=== PATIENT | female | born 1960 | race Asian ===

== ENCOUNTER 2024-08-21 14:28 | Emergency (ER) | payer MEDICAID, OTHER ==
[~2024-08-21] VITALS: Ht 157.5 cm; Wt 54.9 kg
--- NOTE | 2024-08-21 15:04 | ED.PDOC ---
General HPI Comments PMHx: DM, HTN, HLD, sepsis, kidney stones, gallstones, UTI PSHx: Denies. Social hx: No alcohol, illicit drug, or tobacco use. Meds: Carvedilol, Glipizide, Jardiance, ASA Allergies: Codeine. Vitals T: 98.0F RR: 18 HR: 91 BP: 148/68 O2: 97% on RA HPI: Poor Historian. 64Y F presents to ED for chief complaint intermittent n/v x1wk. Additional symptoms include minimal suprapubic pain and vaginal itching. Suprapubic pain is not present on palpation. Pt denies all urinary symptoms. Pt states she had sepsis 1yr ago from UTI (E. Coli) and says she is experiencing the same symptoms now. Patient denies any other symptoms. Patient is here to make sure she does not have sepsis says she has some sepsis in the past. She said I just wanted reassurance. REVIEW OF SYSTEMS: CONSTITUTIONAL: Denies acute: fever, diaphoresis, chills, HEAD: Denies acute: headache, photophobia Eyes: Denies acute: Double vision, vision loss, eye pain, eye discharge. EARS: Denies acute: tinnitus, hearing loss, ear discharge, ear pain, THROAT: Denies acute: sore throat, swelling, difficulty swallowing , pain with swallowing, change in voice. NECK: Denies acute: neck pain, neck swelling, stiff neck. HEART: Denies acute : chest pain, palpitations, LUNGS: Denies acute: SOB, wheezing, cough, hemoptysis ABDOMEN: Denies acute: diarrhea, melena , hematemesis, hematochezia SKIN: Denies acute: rash, redness, lesions, itchiness. EXTREMITIES: Denies acute: calf pain, numbness, tingling, weakness, denies pain in extremity. Denies acute: Low back pain. Neuro: Denies acute: focal neurological deficit, motor or sensory focal neurological deficit, tremors, seizure like activity, confusion, dizziness, change in mental status, loss of bowel or bladder function, cauda equina like symptoms. : Denies acute: dysuria, hematuria, flank pain, increase in urinary frequency. PSYCH: Denies acute: hallucination, suicidal ideation, homicidal ideation. FEMALE: Denies acute: abnormal vaginal bleeding, foul odor, unusual discharge. PHYSICAL EXAM: General: no acute distress, awake and alert. Head: normocephalic, atraumatic. Neck: supple, trachea is midline, no swelling. Throat: Normal phonation. Eyes:, no erythema, no purulent discharge, no proptosis, no icterus. Heart: regular rate, regular rhythm, no significant murmur appreciated. Lungs: no apparent respiratory distress, Able to speak in full sentences. No wheezing, no rhonchi, no crackles. No stridors Clear to auscultation bilaterally. Abdomen: non tender to palpation, non distended, soft, no guarding, no rebound, + bowel sounds. Neuro: Awake, Alert, oriented to name, self, situation, follows commands GCS=15. Speech is normal. Skin: no petechia, no purpura, no cyanosis, non-pale, not jaundice. Lower extremities: --no - Pitting edema no deformity, no focal swelling, no calf TTP. Makes eye contact. moves all four extremities. Face: no apparent facial droop. Ambulating in the ED independently. Chief Complaint: Nausea/Vomiting Time Seen by MD: 14:51 Primary Care Provider: KIARA Reviewed notes: Nurses Notes, Medications, Allergies Information Source: Patient Mode of Arrival: Ambulatory Severity: Mild Inability to void: None Timing: Days Duration: Intermittent Onset: Spontaneous Symptoms: Other History of: UTI, Kidney stone Location: Suprapubic Modifying factors: None associated signs and symptoms: Nausea, Vomiting, Other Past Medical History PAST MEDICAL HISTORY: DM, Gallstones, High Lipids, HTN, Kidney Stones, UTI'S Surgical History: Denies all surgeries CHARGE OPERATOR History: Denies all CHARGE OPERATOR Hx Family History Family History: Family hx of DM Social History Smoker: Non-Smoker Alcohol: Denies ETOH Use Drugs: Denies Drug Use Lives In: Home Was a procedure done? Was a procedure done?: No Differential Diagnosis Kidney stone (Female): Musculoskeletal pain, Urolithiasis Kidney stone (Male): N/A Penile/Scrotal: N/A Urinary Problem (Male): N/A Urinary Problem (Female): Post-op complication, Pyelonephritis, Urinary retention, Urolithiasis, UTI X-Ray, Labs, Meds, VS Vital Signs Date Time Temp Pulse Resp B/P (MAP) Pulse Ox O2 Delivery O2 Flow Rate FiO2 08/21/24 16:15 87 16 148/78 (101) 100 08/21/24 14:46 98.0 91 18 148/68 (94) 97 Lab Test 08/21/24 18:00 08/21/24 16:17 08/21/24 15:56 08/21/24 14:50 Range/Units Urine Color Light-yellow Yellow Urine Clarity Clear Clear Urine pH 5.5 5.0-9.0 Urine Specific [place] 1.036 H 1.001-1.035 Urine Protein Trace H Negative Urine Ketones Negative Negative Urine Blood Negative Negative /uL Urine Nitrite Negative Negative Urine Bilirubin Negative Negative Urine Urobilinogen Normal Negative mg/dL Urine Leukocyte Esterase Negative Negative /uL Urine RBC 1 0 - 4 /hpf Urine WBC 1 0 - 5 /hpf Urine Squamous Epithelial Cells Few <5 /hpf Urine Bacteria None seen None Seen /hpf Urine Glucose 4+ H Normal mg/dL White Blood Count 7.5 4.4-10.8 10^3/uL Red Blood Count 5.42 H 4.0-5.20 10^6/uL Hemoglobin 15.5 12.2-16.2 g/dL Hematocrit 46.5 H 36.0-46.0 % Mean Corpuscular Volume 85.8 80.0-100.0 fL Mean Corpuscular Hemoglobin 28.5 28.0-32.0 pg Mean Corpuscular Hemoglobin Concent 33.3 32.0-36.0 g/dL Red Cell Distribution Width 13.0 11.8-14.3 % Platelet Count 298 140-450 10^3/uL Mean Platelet Volume 7.0 6.9-10.8 fL Neutrophils (%) (Auto) 61.2 37.0-80.0 % Lymphocytes (%) (Auto) 30.3 10.0-50.0 % Monocytes (%) (Auto) 4.3 0.0-12.0 % Eosinophils (%) (Auto) 3.6 0.0-7.0 % Basophils (%) (Auto) 0.6 0.0-2.0 % Neutrophils # (Auto) 4.6 1.6-8.6 10 ^3/uL Lymphocytes # (Auto) 2.3 0.4-5.4 10 ^3/uL Monocytes # (Auto) 0.3 0-1.3 10 ^3/uL Eosinophils # (Auto) 0.3 0-0.8 10 ^3/uL Basophils # (Auto) 0 0-0.2 10 ^3/uL Nucleated Red Blood Cells 0.0 % Sodium Level 142 136-145 mmol/L Potassium Level 4.0 3.5-5.1 mmol/L Chloride Level 107 98-107 mmol/L Carbon Dioxide Level 25 20-31 mmol/L Anion Gap 10 5-15 Blood Urea Nitrogen 17 9-23 mg/dL Creatinine 0.80 0.550-1.02 mg/dL Glomerular Filtration Rate Calc 81 >90 mL/min BUN/Creatinine Ratio 21.3 H 10.0-20.0 Serum Glucose 113 H 74-106 mg/dL Calcium Level 10.3 8.7-10.4 mg/dL Magnesium Level 2.3 1.6-2.6 mg/dL Total Bilirubin 0.5 0.2-1.0 mg/dL Aspartate Amino Transferase (AST) 10 L 13-40 U/L Alanine Aminotransferase (ALT) 13 7-40 U/L Alkaline Phosphatase 83 46-116 U/L Creatine Kinase 65 34-145 U/L Troponin I High Sensitivity < 3 L </=34 ng/L C-Reactive Protein High Sensitivity 0.04 <1.0 mg/dL Total Protein 7.6 5.7-8.2 g/dL Albumin 4.8 3.2-4.8 g/dL Lactic Acid Level 1.5 0.4-2.0 mmol/L POC Glucose 130 H 70-106 mg/dl [place] [address] Ph: [phone] DIAGNOSTIC IMAGING Diagnostic Imaging Report : [id number] Signed PATIENT: RODGER GILMOREFEBRUARY ACCT: [id number] UNIT: [id number] : 1960 LOC: ER ROOM / BED: / AGE / SEX: 64 / F ADM STATUS: REG ER SERVICE 1526 ORDERING PHYSICIAN: EDGAR ADAME DO PROCEDURE(s): CXRP - CHEST PORTABLE REASON: n/v/ suprapubic pain ORDER NUMBER(s): [id number], ACCESSION NUMBER(s): [id number] AP portable chest REASON FOR EXAM: n/v/ suprapubic pain INDICATION: n/v/ suprapubic pain FINDINGS: Heart size is normal There are no infiltrates or effusions. Degenerative changes in the thoracic spine. IMPRESSION: 1. No acute cardiopulmonary pathology. ATED BY: MERRILL BRADLEY MD DICTATED DATE/TIME: 08/21/241623 SIGNED BY: MERRILL BRADLEY MD SIGNED DATE/TIME: 08/21/241623 CC: [place] [id number] Ph: [phone] DIAGNOSTIC IMAGING Diagnostic Imaging Report : [id number] Signed PATIENT: RODGER GILMOREFEBRUARY ACCT: [id number] UNIT: [id number] : 1960 LOC: ER ROOM / BED: / AGE / SEX: 64 / F ADM STATUS: REG ER SERVICE 1526 ORDERING PHYSICIAN: EDGAR ADAME DO PROCEDURE(s): ABPL - CT AB PEL WO CON-NO ORAL OR IV REASON: n/v/ suprapubic pain ORDER NUMBER(s): [id number], ACCESSION NUMBER(s): [id number] Exam: CT CT AB PEL WO CON-NO ORAL OR IV History: n/v/ suprapubic pain Comparison Study: None available at time of dictation. Technique: Multidetector CT of the abdomen and pelvis without contrast. Axial, coronal and sagittal multiplanar reformats were performed by the technologist on a separate workstation. Radiation Dose Information: CT Dose: CTDI volume is 5.19 mGy. Dose-length product is 263.4 mGy*cm Findings: Lung bases are clear. Partially visualized heart is unremarkable. Cholelithiasis without evidence of acute cholecystitis. Liver, spleen, pancreas and adrenal glands are unremarkable. Punctate nonobstructing right renal lower pole calculus. Otherwise, kidneys, ureters and urinary bladder are unremarkable. Uterus and adnexa are unremarkable. Punctate calcification of the right adnexa. Small hiatal hernia. Stomach is unremarkable. Small bowel loops unremarkable. Appendix is unremarkable. Moderate amount of fecal material within the colon. No evidence of aortic aneurysm. Mild atherosclerotic calcification of the aorta and bilateral iliacs. No significant lymphadenopathy. Tiny fat containing umbilical hernia. The soft tissues are unremarkable. Sclerotic focus of the right superior pubic ramus and left proximal femur which may represent bone islands with blastic lesions not excluded. Diffuse demineralization. Mild anterior wedge deformity of T12 with superior T12 endplate Schmorl nodes. IMPRESSION: No evidence of acute abdominopelvic abnormalities. Moderate amount of fecal material within the colon. Small hiatal hernia. Cholelithiasis with no CT evidence of acute cholecystitis. Punctate nonobstructing right renal calculus. ATED BY: JOSSIE MOORE DO DICTATED DATE/TIME: 08/21/24 1635 SIGNED BY: JOSSIE MOORE DO SIGNED DATE/TIME: 08/21/24 1635 CC: Time of 1ST Reevaluation: 15:21 Reevaluation 1ST: Unchanged Time of 2ND Reevaluation: 20:08 Reevaluation 2ND: Improved Patient Education/Counseling: Diagnosis, Treatment Family Education/Counseling: No Family Present Comments Patient presented with the above HPI.---abdominal pain---workup was initiated. patient was found with the above mentioned diagnosis. Patient was given: Patient ED course and VS have been stabilized. Patient has been reassessed in the ED and remained in a stable condition. Patient eloped All the reports of any imaging studies that were ordered by myself were reviewed by myself. Departure 1 Departure Time of Disposition: 19:20 Impression: Primary Impression: Eloped from emergency department Additional Impressions: Nausea and vomiting Constipation Disposition: LEFT AWOL/ELOPED Condition: Stable Additional Instructions: Patient eloped. Below are instructions in case she returns to pick them up. Additional discharge instructions: You MUST follow-up with your primary care/family doctor in 1 to 2 days. If you are unable to see your primary care/family doctor, please return to our emergency room for re-assessment and re-evaluation in 1 to 2 days. Return to the emergency room here in our facility or to the nearest ER [facility] if y our symptoms change or worsen. CONSULTATIONS: you MUST Follow-up for consultation as soon as possible with: -cardiology and Infectious Disease in 1-2 days. Please call for appointment You MUST call the consultants office yourself to make an appointment. You may need to arrange that through your insurance and/or your primary/family doctor. If you are unable to see the product development consultant in 1 to 2 days, you must return to our emergency room (or any other ER of your choice) for re-assessment and re-evaluation. Adequate fluid hydration. Increase fiber intake. Below is a copy of your radiological report for follow up: [facility] [address] [facility] [address] Ph: [phone] DIAGNOSTIC IMAGING Diagnostic Imaging Report : [id number] Signed PATIENT: RODGER GILMOREFEBRUARY ACCT: [id number] UNIT: [id number] : 1960 LOC: ER ROOM / BED: / AGE / SEX: 64 / F ADM STATUS: REG ER SERVICE 1526 ORDERING PHYSICIAN: EDGAR ADAME DO PROCEDURE(s): ABPL - CT AB PEL WO CON-NO ORAL OR IV REASON: n/v/ suprapubic pain ORDER NUMBER(s): [id number], ACCESSION NUMBER(s): [id number] Exam: CT CT AB PEL WO CON-NO ORAL OR IV History: n/v/ suprapubic pain Comparison Study: None available at time of dictation. Technique: Multidetector CT of the abdomen and pelvis without contrast. Axial, coronal and sagittal multiplanar reformats were performed by the technologist on a separate workstation. Radiation Dose Information: CT Dose: CTDI volume is 5.19 mGy. Dose-length product is 263.4 mGy*cm Findings: Lung bases are clear. Partially visualized heart is unremarkable. Cholelithiasis without evidence of acute cholecystitis. Liver, spleen, pancreas and adrenal glands are unremarkable. Punctate nonobstructing right renal lower pole calculus. Otherwise, kidneys, ureters and urinary bladder are unremarkable. Uterus and adnexa are unremarkable. Punctate calcification of the right adnexa. Small hiatal hernia. Stomach is unremarkable. Small bowel loops unremarkable. Appendix is unremarkable. Moderate amount of fecal material within the colon. No evidence of aortic aneurysm. Mild atherosclerotic calcification of the aorta and bilateral iliacs. No significant lymphadenopathy. Tiny fat containing umbilical hernia. The soft tissues are unremarkable. Sclerotic focus of the right superior pubic ramus and left proximal femur which may represent bone islands with blastic lesions not excluded. Diffuse demineralization. Mild anterior wedge deformity of T12 with superior T12 endplate Schmorl nodes. IMPRESSION: No evidence of acute abdominopelvic abnormalities. Moderate amount of fecal material within the colon. Small hiatal hernia. Cholelithiasis with no CT evidence of acute cholecystitis. Punctate nonobstructing right renal calculus. ATED BY: JOSSIE MOORE DO DICTATED DATE/TIME: 08/21/24 163 SIGNED BY: JOSSIE MOORE DO SIGNED DATE/TIME: 08/21/24 163 CC: Discharged With: Self Critical Care Note Critical Care Time?: No Heart Score Heart Score: Heart Score Response (Comments) Value History N/A 0 EKG N/A 0 Age N/A 0 Risk Factors N/A 0 Troponin N/A 0 Total 0 I personally scribed for EDGAR ADAME DO ([email or web address]) on 08/21/24 at 15:04. Electronically submitted by Leeann Vargas ([email or web address]). I personally scribed for EDGAR ADAME DO ([email or web address]) on 08/21/24 at 15:11. Electronically submitted by Leeann Vargas ([email or web address]). I personally scribed for EDGAR ADAME DO ([email or web address]) on 08/21/24 at 16:58. Electronically submitted by Leeann Vargas ([email or web address]). I personally scribed for EDGAR ADAME DO ([email or web address]) on 08/21/24 at 18:37. Elect ronically submitted by Leeann Vargas ([email or web address]). EDGAR ADAME DO Aug 21, 2024 15:04
[2024-08-21 16:15] VITALS: BP 148/78; PULSE 87; RESP 16; O2SAT 100
--- NOTE | 2024-08-21 16:26 | DVH ---
AP portable chest REASON FOR EXAM: n/v/ suprapubic pain INDICATION: n/v/ suprapubic pain FINDINGS: Heart size is normal There are no infiltrates or effusions. Degenerative changes in the th oracic spine. IMPRESSION: 1. No acute cardiopulmonary pathology.
--- NOTE | 2024-08-21 16:37 | DVH ---
Exam: CT CT AB PEL WO CON-NO ORAL OR IV History: n/v/ suprapubic pain Comparison Study: None available at time of dictation. Technique: Multidetector CT of the abdomen and pelvis without contrast. Axial, coronal and sagittal m ultiplanar reformats were performed by the technologist on a separate workstation. Radiation Dose Information: CT Dose: CTDI volume is 5.19 mGy. Dose-length product is 263.4 mGy*cm Findings: Lung bases are clear. Partially visualized heart is unremarkable. Cholelithiasis without evidence of acute cholecystitis. Liver, spleen, pancreas and adrenal glands ar e unremarkable. Punctate nonobstructing right renal lower pole calculus. Otherwise, kidneys, ureters and urinary lin dder are unremarkable. Uterus and adnexa are unremarkable. Punctate calcification of the right adnexa . Small hiatal hernia. Stomach is unremarkable. Small bowel loops unremarkable. Appendix is unremarkab le. Moderate amount of fecal material within the colon. No evidence of aortic aneurysm. Mild atherosclerotic calcification of the aorta and bilateral iliacs . No significant lymphadenopathy. Tiny fat containing umbilical hernia. The soft tissues are unremarkable. Sclerotic focus of the righ t superior pubic ramus and left proximal femur which may represent bone islands with blastic lesions not excluded. Diffuse demineralization. Mild anterior wedge deformity of T12 with superior T12 endpla te Schmorl nodes. IMPRESSION: No evidence of acute abdominopelvic abnormalities. Moderate amount of fecal material within the colon. Small hiatal hernia. Cholelithiasis with no CT evidence of acute cholecystitis. Punctate nonobstructing right renal calculus.
[2024-08-21 16:40] LABS: Basophils # (auto) 0 10 ^3/uL (0-0.2); Basophils % (auto) 0.6 % (0.0-2.0); Eosinophils # (auto) 0.3 10 ^3/uL (0-0.8); Eosinophils % (auto) 3.6 % (0.0-7.0); Hematocrit 46.5 % (36.0-46.0); Hemoglobin 15.5 g/dL (12.2-16.2); Lymphocytes # (auto) 2.3 10 ^3/uL (0.4-5.4); Lymphocytes % (auto) 30.3 % (10.0-50.0); Mean Corpuscular Hemoglobin 28.5 pg (28.0-32.0); Mean Corpuscular Hgb Conc. 33.3 g/dL (32.0-36.0); Mean Corpuscular Volume 85.8 fL (80.0-100.0); Monocytes # (auto) 0.3 10 ^3/uL (0-1.3); Monocytes % (auto) 4.3 % (0.0-12.0); Neutrophils # (auto) 4.6 10 ^3/uL (1.6-8.6); Neutrophils % (auto) 61.2 % (37.0-80.0); Platelet Count (auto) 298 10^3/uL (140-450); Red Blood Cells 5.42 10^6/uL (4.0-5.20); White Blood Cell 7.5 10^3/uL (4.4-10.8)
[2024-08-21 16:59] LABS: Alanine Aminotransferase 13 U/L (7-40); Alkaline Phosphatase 83 U/L (46-116); Anion Gap 10 (5-15); BUN/Creatinine Ratio 21.3 (10.0-20.0); Blood Urea Nitrogen 17 mg/dL (9-23); CRP High Sensitivity 0.04 mg/dL (<1.0); Calcium 10.3 mg/dL (8.7-10.4); Carbon Dioxide 25 mmol/L (20-31); Chloride 107 mmol/L (98-107); Glucose 113 mg/dL (74-106); Magnesium 2.3 mg/dL (1.6-2.6); Sodium 142 mmol/L (136-145)
[2024-08-21 17:00] LABS: Albumin 4.8 g/dL (3.2-4.8); Aspartate Aminotransferase 10 U/L (13-40); Bilirubin, Total 0.5 mg/dL (0.2-1.0); Creatine Kinase IFCC 65 U/L (34-145); Total Protein 7.6 g/dL (5.7-8.2)
[2024-08-21 18:02] LABS: Urine Bacteria None Seen /hpf (None Seen)
[2024-08-21 18:29] LABS: Urine Blood Negative /uL (Negative); Urine Clarity Clear (Clear); Urine Color Light-Yellow (Yellow); Urine Protein, UAD TRACE (Negative); Urine Specific Gravity 1.036 (1.001-1.035); Urine Urobilinogen Normal (Negative); Urine WBC 1 /hpf (0 - 5); Urine pH 5.5 (5.0-9.0)
== END 2024-08-21 19:20 | disposition left against medical advice (07) ==
LOC: ER 14:28
DX: K59.00 Constipation, unspecified (principal); R11.2 Nausea with vomiting, unspecified; E11.9 Type 2 diabetes mellitus without complications; I10 Essential (primary) hypertension; E78.5 Hyperlipidemia, unspecified; Z79.899 Other long term (current) drug therapy; Z88.8 Allergy status to other drugs, medicaments and biological substances; Z53.29 Procedure and treatment not carried out because of patient's decision for other reasons
CPT/HCPCS: 36415; 71045; 74176; 80053; 81001; 82550; 82962; 83605; 83735; 84484; 85025; 86141

== ENCOUNTER 2025-09-23 10:58 | Inpatient (IN) | payer MEDICAID, MEDICARE ==
[~2025-09-23] VITALS: Ht 157.5 cm; Wt 63.2 kg
--- NOTE | 2025-09-23 11:24 | ED.PDOC ---
HPI Comments 65 y/o F, with PMHx of HTN, HLD, and DMII presents to the ED for CC of chest pain. Patient states, she has been experiencing substernal non-radiating chest pain onset, this morning (09/23/25). Patient reports, pain to worsen when coughing and describes it to be "heavy" in nature. Patient denies shortness of breath, hemoptysis, palpitations, or dizziness. No other symptoms or modifying factors are present at this time. Chief Complaint: Chest Pain Time Seen by MD: 11:00 Reviewed Notes: Nurses Notes, Medications, Allergies Allergies: Coded Allergies: NO KNOWN ALLERGIES (Unverified , 09/23/25) Information Source: Patient Mode of Arrival: Ambulatory Severity: Moderate Timing: Days Duration: Since onset Prehospital treatment: None Location: Substernal Radiation: No Radiation Quality: Heavy Onset: At Rest Cardiac Risk Factors: Hyperlipidemia, HTN, Diabetes PE Risk Factors: None History of: None Associated Signs and Symptoms: None Past Medical History PAST MEDICAL HISTORY: DM, Gallstones, High Lipids, HTN, Kidney Stones, UTI'S Surgical History: Denies all surgeries MANAGER EDUCATION History: Denies all MANAGER EDUCATION Hx Family History Family History: Unknown Social History Smoker: Non-Smoker Alcohol: Denies ETOH Use Drugs: Denies Drug Use Lives In: Home Constitutional: denies: chills, diaphoresis, fatigue, fever, malaise, sweats, weakness, others EENTM: denies: blurred vision, double vision, ear bleeding, ear discharge, ear drainage, ear pain, ear ringing, eye pain, eye redness, hearing loss, mouth pain, mouth swelling, nasal discharge, nose bleeding, nose congestion, nose pain, photophobia, tearing, throat pain, throat swelling, voice changes, others Respiratory: reports: cough; denies: hemoptysis, orthopnea, SOB at rest, shortness of breath, SOB with excertion, stridor, wheezing, others Cardiovascular: reports: chest pain; denies: dizzy spells, diaphoresis, Dyspnea on exertion, edema, irregular heart beat, left arm pain, lightheadedness, palpitations, PND, syncope, others Gastrointestinal: denies: abdomen distended, abdominal pain, blood streaked bowels, constipated, diarrhea, dysphagia, difficulty swallowing, hematemesis, melena, nausea, poor appetite, poor fluid intake, rectal bleeding, rectal pain, vomiting, others Genitourinary: denies: abnormal vagina bleeding, burning, dyspareunia, dysuria, flank pain, frequency, hematuria, incontinence, pain, , vagina discharge, urgency, others Neurological: denies: dizziness, fainting, headache, left sided numbness, left sided weakness, numbness, paresthesia, pre-existing deficit, right sided numbness, right sided weakness, seizure, speech problems, tingling, tremors, weakness, others Musculoskeletal: denies: back pain, gout, joint pain, joint swelling, muscle pain, muscle stiffness, neck pain, others Integumetry: denies: bruises, change in color, change in hair/nails, dryness, laceration, lesions, lumps, rash, wounds, others Allergic/Immunocompromised: denies: Difficulty Healing, Frequent Infections, Hives, Itching, others Hematologic/Lymphatic: denies: anemia, blood clots, easy bleeding, easy bruising, swollen glands, others Endocrine: denies: excessive hunger, excessive sweating, excessive thirst, excessive urination, flushing, intolerance to cold, intolerance to heat, unexplained weight gain, unexplained weight loss, others Psychiatric: denies: anxiety, bipolar disorder, depression, hopeless, panic disorder, schizophrenia, sleepless, suicidal, others All Other Systems: Reviewed and Negative Physical Exam General Appearance: Moderate Distress HEENT: Normal ENT Inspection, Pharynx Normal, TMs Normal Neck: Full Range of Motion, Non-Tender, Normal, Normal Inspection Respiratory: Chest Non-Tender, Lungs Clear, No Accessory Muscle Use, No Respiratory Distress, Normal Breath Sounds Cardiovascular: No Edema, No JVD, No Murmur, No Gallop, Normal Peripheral Pulses, Regular Rate/Rhythm Breast Exam: Deferred Gastrointestinal: No Organomegaly, Non Tender, No Pulsatile Mass, Normal Bowel Sounds, Soft Genitalia: Deferred Pelvic: Deferred Rectal: Deferred Extremities: No calf tenderness, Normal capillary refill, Normal inspection, Normal range of motion, Non-tender, No pedal edema Musculoskeletal : Apperance: Normal Neurologic: Alert, bill of lading clerk II-XII nml as Tested, No Motor Deficits, Normal Affect, Normal Mood, No Sensory Deficits Cerebellar Function: Normal Reflexes: Normal Skin: Dry, Normal Color, Warm Peripheral Pulses: 3+ Radial (R), 3+ Radial (L) Lymphatic: No Adenopathy Was a procedure done? Was a procedure done?: No CP Differential Dx Differential Diagnosis: A-fib, A-Flutter, Angina, Anxiety / Panic Attack, Atrial Dysrhythmia, Electrolyte Disorder Differential Diagnosis: Chest Wall Pain, Costochondritis X-Ray, Labs, Meds, VS Vital Signs Date Time Temp Pulse Resp B/P (MAP) Pulse Ox O2 Delivery O2 Flow Rate FiO2 09/23/25 12:35 99.0 97 17 106/67 (80) 96 99.0 09/23/25 12:35 17 17 96 Room Air 09/23/25 12:17 154/79 09/23/25 12:14 88 09/23/25 12:13 98.4 88 18 154/79 (104) 96 98.4 09/23/25 11:05 85 09/23/25 10:59 98.7 89 16 179/91 98 98.7 Lab Test 09/23/25 12:41 09/23/25 11:19 Range/Units Troponin I High Sensitivity Pending < 3 L </=34 ng/L White Blood Count 7.2 4.4-10.8 10^3/uL Red Blood Count 5.05 4.0-5.20 10^6/uL Hemoglobin 14.0 12.2-16.2 g/dL Hematocrit 42.0 36.0-46.0 % Mean Corpuscular Volume 83.2 80.0-100.0 fL Mean Corpuscular Hemoglobin 27.7 L 28.0-32.0 pg Mean Corpuscular Hemoglobin Concent 33.3 32.0-36.0 g/dL Red Cell Distribution Width 13.0 11.8-14.3 % Platelet Count 255 140-450 10^3/uL Mean Platelet Volume 7.5 6.9-10.8 fL Neutrophils (%) (Auto) 60.1 37.0-80.0 % Lymphocytes (%) (Auto) 31.2 10.0-50.0 % Monocytes (%) (Auto) 4.9 0.0-12.0 % Eosinophils (%) (Auto) 3.2 0.0-7.0 % Basophils (%) (Auto) 0.6 0.0-2.0 % Neutrophils # (Auto) 4.3 1.6-8.6 10 ^3/uL Lymphocytes # (Auto) 2.2 0.4-5.4 10 ^3/uL Monocytes # (Auto) 0.4 0-1.3 10 ^3/uL Eosinophils # (Auto) 0.2 0-0.8 10 ^3/uL Basophils # (Auto) 0 0-0.2 10 ^3/uL Nucleated Red Blood Cells 0.2 % Sodium Level 136 136-145 mmol/L Potassium Level 4.1 3.5-5.1 mmol/L Chloride Level 100 98-107 mmol/L Carbon Dioxide Level 26 20-31 mmol/L Anion Gap 10 5-15 Blood Urea Nitrogen 8 L 9-23 mg/dL Creatinine 1.03 H 0.550-1.02 mg/dL Glomerular Filtration Rate Calc 60 >90 mL/min BUN/Creatinine Ratio 7.8 L 10.0-20.0 Serum Glucose 311 H 74-106 mg/dL Calcium Level 10.0 8.7-10.4 mg/dL Total Bilirubin 0.6 0.2-1.0 mg/dL Aspartate Amino Transferase (AST) 16 13-40 U/L Alanine Aminotransferase (ALT) 17 7-40 U/L Alkaline Phosphatase 96 46-116 U/L Total Protein 7.9 5.7-8.2 g/dL Albumin 4.7 3.2-4.8 g/dL Current Medications Medications (Trade) Dose Ordered Sig/Rohan Route Start Time Stop Time Status Last Admin Aspirin 325 mg ONCE ONCE PO 09/23/25 11:30 09/23/25 11:31 DC 09/23/25 12:46 Nitroglycerin (Ntrostat Sublingual) 0.4 mg ONCE ONCE SL 09/23/25 11:30 09/23/25 11:31 DC 09/23/25 12:17 Patient alert. Came in because of chest pain. Ambulating. Vitals stable. Answering all questions. Saturation pristine on room air. Has risk factors for coronary artery disease. Request stress test. EKG reviewed does not show any acute changes. Explained to the patient. Continue monitoring. [facility] [address] [facility] [address] Ph: [phone] DIAGNOSTIC IMAGING Diagnostic Imaging Report : [id number] Signed PATIENT: RODGER GILMOREFEBRUARY ACCT: [id number] UNIT: [id number] : 1960 LOC: ER ROOM / BED: / AGE / SEX: 65 / F ADM STATUS: REG ER SERVICE 1106 ORDERING PHYSICIAN: MAYRA SOTO MD PROCEDURE(s): CXRP - CHEST PORTABLE REASON: CP ORDER NUMBER(s): [id number], ACCESSION NUMBER(s): [id number] EXAM: XY CHEST PORTABLE CLINICAL HISTORY: CP TECHNIQUE: Single AP view of the chest WID: COMPARISON: XY CHEST PORTABLE on DOS: 08/21/24, XY CHEST XRAY 1 VIEW on DOS: 09/02/23 FINDINGS: Lines and tubes: None Chest: The heart size and pulmonary vasculature is within normal limits. Calcified plaque projects over the aortic arch. No pleural effusion, pneumothorax, or consolidation. The osseous structures are grossly intact. IMPRESSION: 1. No acute cardiopulmonary abnormality. ATED BY: AVILA ALLEN MD DICTATED DATE/TIME: 09/23/251226 SIGNED BY: AVILA ALLEN MD SIGNED DATE/TIME: 09/23/251226 CC: Time of 1ST Reevaluation: 11:30 Reevaluation 1ST: Unchanged Patient Education/Counseling: Diagnosis, Treatment Family Education/Counseling: No Family Present SEPSIS Sepsis Screen Date sepsis recognized/suspect: Sep 23, 2025 Time Sepsis recognized/suspect: 1059 Recent Procedure: No On Antibiotic Therapy: No Respiratory Rate >20: No Heart Rate >90: No Temp<36 C (96.8 F) or >38.3 C: No SBP <90 or MAP <65 mmHG: No New Acute Mental Status Change: No Is the patient on CPAP, BIPAP,: No Physician Orders Chest Portable (09/23/25 11:06) Electrocardigram (09/23/25 11:03) Troponin-I Hs (09/23/25 12:03) Troponin-I Hs (09/23/25 14:03) Electrocardigram (09/23/25 12:03) Electrocardigram (09/23/25 14:03) Urinalysis (09/23/25 11:05) Vital Signs Date Time Temp Pulse Resp B/P (MAP) Pulse Ox O2 Delivery O2 Flow Rate FiO2 09/23/25 12:35 99.0 97 17 106/67 (80) 96 99.0 09/23/25 12:35 17 17 96 Room Air 09/23/25 12:17 154/79 09/23/25 12:14 88 09/23/25 12:13 98.4 88 18 154/79 (104) 96 98.4 09/23/25 11:05 85 09/23/25 10:59 98.7 89 16 179/91 98 98.7 Laboratory Tests Test 09/23/25 11:19 White Blood Count 7.2 10^3/uL (4.4-10.8) Medications Medications Dose Ordered Sig/Rohan Route Start Time Stop Time Status Last Admin Dose Admin Aspirin 325 mg ONCE ONCE PO 09/23/25 11:30 09/23/25 11:31 DC 09/23/25 12:46 Nitroglycerin 0.4 mg ONCE ONCE SL 09/23/25 11:30 09/23/25 11:31 DC 09/23/25 12:17 Departure 1 Departure Time of Disposition: 11:49 Impression: Primary Impression: Chest pain of unknown etiology Additional Impression: Hypertensive urgency Disposition: ADMITTED INPATIENT Admit to: Med Surg Condition: Guarded Critical Care Note Critical Care Time?: No Stability Stability form required: No Heart Score Heart Score: Heart Score Response (Comments) Value History Moderate Suspicious 1 EKG N/A 0 Age >65 2 Risk Factors 1 or 2 risk factors 1 Troponin N/A 0 Total 4 I personally scribed for MAYRA SOTO MD ([email or web address]) on 09/23/25 at 11:23. Electronically submitted by Avani Weiss ([employer]). I personally scribed for MAYRA SOTO MD ([email or web address]) on 09/23/25 at 11:29. Electronically submitted by Avani Weiss ([email or web address]). I personally scribed for MAYRA SOTO MD ([email or web address]) on 09/23/25 at 13:15. Electronically submitted by Avani Weiss ([employer]). MAYRA SOTO MD Sep 23, 2025 11:23
[2025-09-23 12:11] LABS: Hematocrit 42.0 % (36.0-46.0); Hemoglobin 14.0 g/dL (12.2-16.2); Mean Corpuscular Hemoglobin 27.7 pg (28.0-32.0); Mean Corpuscular Volume 83.2 fL (80.0-100.0); Nucleated Red Blood Cells % 0.2 %
[2025-09-23] MEDS: NITROGLYCERIN 0.4 MG SL TAB SL ONE (12:17)
[2025-09-23 12:22] LABS: Alanine Aminotransferase 17 U/L (7-40); Albumin 4.7 g/dL (3.2-4.8); Alkaline Phosphatase 96 U/L (46-116); Anion Gap 10 (5-15); BUN/Creatinine Ratio 7.8 (10.0-20.0); Bilirubin, Total 0.6 mg/dL (0.2-1.0); Calcium 10.0 mg/dL (8.7-10.4); Carbon Dioxide 26 mmol/L (20-31); Chloride 100 mmol/L (98-107); Potassium 4.1 mmol/L (3.5-5.1); Total Protein 7.9 g/dL (5.7-8.2)
--- NOTE | 2025-09-23 12:29 | DVH ---
EXAM: XY CHEST PORTABLE CLINICAL HISTORY: CP TECHNIQUE: Single AP view of the chest WID: COMPARISON: XY CHEST PORTABLE on DOS: 08/21/24, XY CHEST XRAY 1 VIEW on DOS: 09/02/23 FINDINGS: Lines and tubes: None Chest: The heart size and pulmonary vasculature is within normal limits. Calcified plaque projects over the aortic arch. No pleural effusion, pneumothorax, or consolidation. The osseous structures are grossly intact. IMPRESSION: 1. No acute cardiopulmonary abnormality.
[2025-09-23 12:31] LABS: Blood Urea Nitrogen 8 mg/dL (9-23); Glucose 311 mg/dL (74-106); Sodium 136 mmol/L (136-145)
--- NOTE | 2025-09-23 14:12 | ECG ---
[facility] Test Date: 2025-09-23 Test Time: 14:10:35 Pat Name: YOHANA GILMORE Department: Room: [address] [place] [address] Gender: F [employer] Mainframe Developer: JASVIR : 1960 Requested By: MAYRA SOTO Order Number: [id number] Reading MD: Vineet Scott Measurements Intervals [place] Rate: 92 P: 79 HI: 187 QRS: 76 QRSD: 68 T: 39 QT: 353 QTc: 437 Interpretive Statements Sinus rhythm Anteroseptal infarct, age indeterminate Electronically Signed On 09-27-2025 17:22:43 PST by Vineet Scott Please click the below link to view image of tracing.
[2025-09-23] MEDS ORDERED: ONDANSETRON HCL 4 MG/2 ML VIAL IV PRN (15:45)
[2025-09-23] MEDS ORDERED: ACETAMINOPHEN 325 MG TAB PO PRN (15:45)
[2025-09-23] MEDS ORDERED: DEXTROSE (50%) 50ML SYRG IV PRN (15:45)
[2025-09-23] MEDS ORDERED: NITROGLYCERIN 0.4 MG SL TAB SL PRN ×2 (15:45)
--- NOTE | 2025-09-23 15:50 | DVHHP2 ---
History of Present Illness Reason for Visit: chest pain History of Present Illness 89 yr old Female patient with past medical history significant for hypertension, hyperlipidemia, and diabetes, with no prior surgical history, presents with midsternal chest pain that has been ongoing for four days. Patient describes the pain as worse with coughing and reports an associated cough. She states she took nitroglycerin, which helped improve her symptoms. She denies fever and denies any tearing or ripping sensation in the chest or pelvis. She has no prior history of myocardial infarction. She reports outpatient cardiology follow-up with Dr. Christianson.In the ED, laboratory evaluation showed troponins negative x3, CBC unremarkable, CMP unremarkable, and creatinine 1.03. Chest X- ray was unremarkable. Given her cardiac risk factors and chest pain responsive to nitroglycerin, she is being admitted for ACS rule-out and further cardiac evaluation. Past Medical History See HPI above Past Surgical History See HPI above Family History Reviewed, non-contributory to the management of this case. Past Social History The patient lives at home, denies smoking, alcohol or illicit drugs abuse. Review of Systems Constitutional: No: Fever, Chills, Sweats, Weakness, Malaise, Other Eyes: No: Pain, Vision change, Conjunctivae inflammation, Eyelid inflammation, Other, Redness ENT: No: Ear pain, Ear discharge, Nose pain, Nose discharge, Nose congestion, Mouth pain, Mouth swelling, Throat pain, Throat swelling, Other Respiratory: No: Cough, Dry, Shortness of breath, SOB with excertion, Wheezing, Hemoptysis, Pleuritic Pain, Sputum, Wheezing, Other Cardiovascular: Chest Pain, Palpitations; No: Orthopnea, Paroxysmal Noc. Dyspnea, Edema, Lt Headedness, Other Gastrointestinal: No: Nausea, Vomiting, Abdominal Pain, Diarrhea, Constipation, Melena, Hematochezia, Other Genitourinary: No Dysuria, No Frequency, No Incontinence, No Hematuria, No Retention, No Other Musculoskeletal: No: other, neck pain, shoulder pain, arm pain, back pain, hand pain, leg pain, foot pain Skin: No: Rash, Lesions, Jaundice, Bruising, Other Neurological: No: Weakness, Numbness, Incoordination, Change in speech, Confusion, Seizures, Other Allergies: Coded Allergies: NO KNOWN ALLERGIES (Unverified , 09/23/25) Medications Current Medications Medications Dose Ordered Sig/Rohan Route Start Time Stop Time Status Last Admin Dose Admin Diagnostic Test (Pha) 1 strip ACHS 09/23/25 17:00 Insulin Human Regular ACHS SC 09/23/25 17:00 Dextrose 50 ml UD PRN IV 09/23/25 15:45 Aspirin 81 mg DAILY PO 09/24/25 10:00 Atorvastatin Calcium 40 mg HS PO 09/23/25 22:00 Acetaminophen 325 mg Q4HP PRN PO 09/23/25 15:45 Docusate Sodium 100 mg DAILY PO 09/24/25 10:00 Ondansetron HCl 4 mg Q4HP PRN IV 09/23/25 15:45 Enoxaparin Sodium 40 mg DAILY IV 09/24/25 10:00 Nitroglycerin 0.4 mg Q5MINP PRN SL 09/23/25 15:45 Exam Vital Signs Vital Signs Date Time Temp Pulse Resp B/P (MAP) Pulse Ox O2 Delivery O2 Flow Rate FiO2 09/23/25 12:35 99.0 97 17 106/67 (80) 96 99.0 09/23/25 12:35 Room Air General Appearance: Alert, Oriented X3, Cooperative, No acute distress HEENT: Atraumatic, PERRLA, EOMI, Mucous membr. moist/pink Respiratory: Clear to auscultation, Normal air movement Cardiovascular: Regular rate, Normal S1, Normal S2, No murmurs Abdominal: Normal bowel sounds, Soft, No tenderness, No hepatospenomegaly, No masses Extremities: No clubbing, No cyanosis, No edema, Normal pulses, No tenderness/swelling Skin: No rashes, No breakdown, No significant lesion Neuro: Normal gait, Normal speech, Strength at 5/5 X4 ext, Normal tone, Sensation intact Psych/Mental Status: Mental status NL, Mood NL Labs/Xrays Chest x-ray unremarkable I reviewed labs, imaging CT scan abdomen pelvis, EKG and all diagnostic studies on this patient from ED records and the medical chart Labs Test 09/23/25 14:06 09/23/25 11:19 Range/Units Troponin I High Sensitivity < 3 L </=34 ng/L White Blood Count 7.2 4.4-10.8 10^3/uL Red Blood Count 5.05 4.0-5.20 10^6/uL Hemoglobin 14.0 12.2-16.2 g/dL Hematocrit 42.0 36.0-46.0 % Mean Corpuscular Volume 83.2 80.0-100.0 fL Mean Corpuscular Hemoglobin 27.7 L 28.0-32.0 pg Mean Corpuscular Hemoglobin Concent 33.3 32.0-36.0 g/dL Red Cell Distribution Width 13.0 11.8-14.3 % Platelet Count 255 140-450 10^3/uL Mean Platelet Volume 7.5 6.9-10.8 fL Neutrophils (%) (Auto) 60.1 37.0-80.0 % Lymphocytes (%) (Auto) 31.2 10.0-50.0 % Monocytes (%) (Auto) 4.9 0.0-12.0 % Eosinophils (%) (Auto) 3.2 0.0-7.0 % Basophils (%) (Auto) 0.6 0.0-2.0 % Neutrophils # (Auto) 4.3 1.6-8.6 10 ^3/uL Lymphocytes # (Auto) 2.2 0.4-5.4 10 ^3/uL Monocytes # (Auto) 0.4 0-1.3 10 ^3/uL Eosinophils # (Auto) 0.2 0-0.8 10 ^3/uL Basophils # (Auto) 0 0-0.2 10 ^3/uL Nucleated Red Blood Cells 0.2 % Sodium Level 136 136-145 mmol/L Potassium Level 4.1 3.5-5.1 mmol/L Chloride Level 100 98-107 mmol/L Carbon Dioxide Level 26 20-31 mmol/L Anion Gap 10 5-15 Blood Urea Nitrogen 8 L 9-23 mg/dL Creatinine 1.03 H 0.550-1.02 mg/dL Glomerular Filtration Rate Calc 60 >90 mL/min BUN/Creatinine Ratio 7.8 L 10.0-20.0 Serum Glucose 311 H 74-106 mg/dL Calcium Level 10.0 8.7-10.4 mg/dL Total Bilirubin 0.6 0.2-1.0 mg/dL Aspartate Amino Transferase (AST) 16 13-40 U/L Alanine Aminotransferase (ALT) 17 7-40 U/L Alkaline Phosphatase 96 46-116 U/L Total Protein 7.9 5.7-8.2 g/dL Albumin 4.7 3.2-4.8 g/dL SEPSIS Sepsis Screen Date sepsis recognized/suspect: Sep 23, 2025 Time Sepsis recognized/suspect: 1213 Recent Procedure: No On Antibiotic Therapy: No Respiratory Rate >20: No Heart Rate >90: No Temp<36 C (96.8 F) or >38.3 C: No SBP <90 or MAP <65 mmHG: No New Acute Mental Status Change: No Is the patient on CPAP, BIPAP,: No Physician Orders Chest Portable (09/23/25 11:06) Electrocardigram (09/23/25 12:03) Electrocardigram (09/23/25 14:03) Urinalysis (09/23/25 11:05) Glucose Blood (Accu-Chek Comfort Curve T (09/23/25 17:00) Insulin R (Human) (Insulin R) (09/23/25 17:00) Dextrose 50% Syringe (09/23/25 15:45) Admit (09/23/25 15:35) Code Status (09/23/25 15:35) Vital Signs .PER UNIT PROTOCOL (09/23/25 15:35) Water Inspector (09/23/25 15:35) May Elevate Hob ____ Degrees (09/23/25 15:35) Cardiac Diet-2gna,Lofat,Lochol (09/23/25 Dinner) Aspirin Chewable Tablet (09/24/25 10:00) Atorvastatin (Lipitor) (09/23/25 22:00) Acetaminophen Tablet (Tylenol Tablet) (09/23/25 15:45) Docusate Sodium Capsule (Colace Capsule) (09/24/25 10:00) Complete Blood Count (09/24/25 04:00) Comprehensive Metabolic Panel (09/24/25 04:00) Echo 2d Mode Cardiac Dop (09/23/25 15:35) Ondansetron Hcl (Zofran) (09/23/25 15:45) Magnesium (09/23/25 15:35) Electrocardigram (09/23/25 15:35) Enoxaparin Sodium (Lovenox) (09/24/25 10:00) Cardiac Rehabilitation - Outpa (09/23/25 ) Nitroglycerin Sublingual (Ntrostat Subli (09/23/25 15:45) Stat Ekg For Chest Pain (09/23/25 15:35) Notify Md Of Changes From Base (09/23/25 15:35) Director State Pharmacy For 24 Hours (09/23/25 15:35) Emergency Dysrhythmia Protocol (09/23/25 15:35) Rhythm Strips Once Every Shift (09/23/25 15:35) Oxygen By Nasal Cannula (09/23/25 15:35) * Cardiology Consult (09/23/25 15:35) Communication Order (09/23/25 15:35) Vital Signs Date Time Temp Pulse Resp B/P (MAP) Pulse Ox O2 Delivery O2 Flow Rate FiO2 09/23/25 12:35 99.0 97 17 106/67 (80) 96 99.0 09/23/25 12:35 17 17 96 Room Air 09/23/25 12:17 154/79 09/23/25 12:14 88 09/23/25 12:13 98.4 88 18 154/79 (104) 96 98.4 09/23/25 11:05 85 09/23/25 10:59 98.7 89 16 179/91 98 98.7 Laboratory Tests Test 09/23/25 11:19 White Blood Count 7.2 10^3/uL (4.4-10.8) Medications Medications Dose Ordered Sig/Rohan Route Start Time Stop Time Status Last Admin Dose Admin Aspirin 325 mg ONCE ONCE PO 09/23/25 11:30 09/23/25 11:31 DC 09/23/25 12:46 325 MG Nitroglycerin 0.4 mg ONCE ONCE SL 09/23/25 11:30 09/23/25 11:31 DC 09/23/25 12:17 0.4 MG Assessment/Plan Assessment/Plan 65 female admitted for acute chest pain with multiple cardiovascular risk factors, requiring ACS rule-out and cardiology evaluation despite negative initial workup. acute Chest pain, rule out acute coronary syndrome (ACS) Admit to telemetry floor Troponins negative 3 EKG monitoring on telemetry Cardiology consult (Dr. Christianson) Continue aspirin and atorvastin Nitroglycerin PRN chest pain Hypertension Continue home antihypertensive medications Monitor blood pressure closely acute Cough, likely musculoskeletal chest pain component Chest X-ray unremarkable Symptomatic treatment Monitor for infectious symptoms chronic problems Hyperlipidemia Continue statin therapy Type 2 diabetes mellitus Accu-checks/Sliding scale insulin Hypertension FEN / PPx Fluids:hl Electrolytes: Monitor BMP Nutrition: Cardiac/diabetic diet DVT Prophylaxis: SCDs GI Prophylaxis: As indicated since no hx Disposition Admit to telemetry floor for continued cardiac monitoring and ACS rule-out. Cardiology consultation Plan discussed with: Patient My Orders Orders - ELLYN POLLARD DNP Procedure Category Date Status Time Glucose Blood PHA 09/23/25 In Process (Accu-Chek Comfort 17:00 Insulin R (Human) PHA 09/23/25 In Process (Insulin R) 17:00 Dextrose 50% Syringe PHA 09/23/25 In Process 15:45 Admit ADMIT 09/23/25 Transmitted 15:35 Code Status CODE 09/23/25 Transmitted 15:35 Vital Signs SONNY 09/23/25 In Process 15:35 Water Inspector SONNY 09/23/25 In Process 15:35 May Elevate Hob ____ SONNY 09/23/25 In Process Degrees 15:35 Cardiac DIET 09/23/25 Transmitted Diet-2gna,Lofat,Lochol Dinner Aspirin Chewable PHA 09/24/25 In Process Tablet 10:00 Atorvastatin (Lipitor) PHA 09/23/25 In Process 22:00 Acetaminophen Tablet PHA 09/23/25 In Process (Tylenol Tablet) 15:45 Docusate Sodium PHA 09/24/25 In Process Capsule (Colace 10:00 Complete Blood Count LAB 09/24/25 Verified 04:00 Comprehensive LAB 09/24/25 Verified Metabolic Panel 04:00 Echo 2d Mode Cardiac US 09/23/25 Logged DOP 15:35 Ondansetron Hcl PHA 09/23/25 In Process (Zofran) 15:45 Magnesium LAB 09/23/25 Logged 15:35 Electrocardigram EKG 09/23/25 Logged 15:35 Enoxaparin Sodium PHA 09/24/25 In Process (Lovenox) 10:00 Cardiac SONNY 09/23/25 In Process Rehabilitation - Outpa Nitroglycerin PHA 09/23/25 In Process Sublingual (Ntrostat 15:45 Stat Ekg For Chest SONNY 09/23/25 In Process Pain 15:35 Notify Of Changes SONNY 09/23/25 In Process From Base 15:35 Director State Pharmacy For SONNY 09/23/25 In Process 24 Hours 15:35 Emergency Dysrhythmia SONNY 09/23/25 In Process Protocol 15:35 Rhythm Strips Once [facility] 12/28/25 In Process Every Shift 15:35 Oxygen By Nasal RT 09/23/25 Transmitted Cannula 15:35 * Cardiology Consult CONS 09/23/25 Transmitted 15:35 Communication Order ORDERS 09/23/25 Transmitted 15:35 Date of Service: Sep 23, 2025 Billing Provider: ELLYN POLLARD DNP Common Visit Codes: [id number] INP/OBS CARE (HIGH) ELLYN POLLARD DNP Sep 23, 2025 15:50
[2025-09-23] MEDS: ACCU-CHEK COMFORT CURVE STRIP VI SCH (17:46)
[2025-09-23] MEDS: InsuLIN REG 1unit/0.01ml Soln (100units/ml) SC SCH (22:00)
[2025-09-23 22:15] LABS: Urine Protein, UAD 1+ (Negative)
[2025-09-24] VITALS (8 sets, daily range): BP systolic 105–163; BP diastolic 65–75; PULSE 80–95; RESP 14–20; TEMP 97.8–98.2; O2SAT 95–100
[2025-09-24] MEDS: ATORVASTATIN 20 MG TAB PO SCH (00:07)
[2025-09-24 05:41] LABS: Hematocrit 42.0 % (36.0-46.0); Hemoglobin 13.7 g/dL (12.2-16.2); Mean Corpuscular Hemoglobin 27.3 pg (28.0-32.0); Mean Corpuscular Volume 83.9 fL (80.0-100.0); Nucleated Red Blood Cells % 0.1 %
[2025-09-24 06:02] LABS: Alanine Aminotransferase 16 U/L (7-40); Alkaline Phosphatase 86 U/L (46-116); Anion Gap 11 (5-15); BUN/Creatinine Ratio 12.7 (10.0-20.0); Blood Urea Nitrogen 14 mg/dL (9-23); Calcium 9.7 mg/dL (8.7-10.4); Carbon Dioxide 26 mmol/L (20-31); Chloride 100 mmol/L (98-107); Potassium 3.7 mmol/L (3.5-5.1); Sodium 137 mmol/L (136-145)
[2025-09-24 06:03] LABS: Total Protein 7.5 g/dL (5.7-8.2)
[2025-09-24 06:04] LABS: Albumin 4.5 g/dL (3.2-4.8); Glucose 250 mg/dL (74-106)
[2025-09-24 06:05] LABS: Bilirubin, Total 0.6 mg/dL (0.2-1.0)
[2025-09-24] MEDS: DOCUSATE SOD 100 MG CAP PO SCH (10:00)
[2025-09-24] MEDS: ENOXAPARIN SOD 30 MG/0.3 ML SYRINGE IV SCH (10:00)
--- NOTE | 2025-09-24 10:10 | ECG ---
[facility] Test Date: 2025-09-23 Test Time: 11:05:53 Pat Name: YOHANA GILMORE Department: Room: [address] [place] [address] A Gender: F Skimmer: GEORGIE : 1960 Requested By: MAYRA SOTO Order Number: [id number] Reading MD: Vineet Scott Measurements Intervals [place] Rate: 85 P: 76 NV: 222 QRS: 70 QRSD: 69 T: 59 QT: 370 QTc: 440 Interpretive Statements Sinus rhythm Borderline prolonged NV interval Low voltage, precordial leads Anteroseptal infarct, age indeterminate Baseline wander in lead(s) V3,V4 Electronically Signed On 09-27-2025 17:20:12 PST by Vineet Scott Please click the below link to view image of tracing.
--- NOTE | 2025-09-24 10:10 | ECG ---
[facility] Test Date: 2025-09-23 Test Time: 12:06:59 Pat Name: YOHANA GILMORE Department: Room: [address] [place] [address] A Gender: F [employer] Gauger: JASVIR : 1960 Requested By: MAYRA SOTO Order Number: [id number] Reading MD: Vineet Scott Measurements Intervals [place] Rate: 83 P: 75 TN: 180 QRS: 68 QRSD: 70 T: 26 QT: 367 QTc: 432 Interpretive Statements Sinus rhythm Low voltage, precordial leads Borderline T abnormalities, anterior leads Electronically Signed On 09-27-2025 17:19:10 PST by Vineet Scott Please click the below link to view image of tracing.
[2025-09-24] MEDS: FLUTICASONE PROP NASAL SPR 0.05 % (50MCG) 16GM EACHNOSTRI ONE (11:09)
[2025-09-24 11:11] LABS: Cholesterol 157 mg/dL (< 200); HDL Cholesterol 35 mg/dL (40-59); Triglycerides 323 mg/dL (< 150)
--- NOTE | 2025-09-24 12:09 | DVHINCON2 ---
Date Seen: Sep 24, 2025 Referring Physician SHAHID Nails Reason for Consultation chest pain History of Present Illness Patient is a 65-year-old female with a medical history of hypertension, cjz-ltwxyig-wkyathinq type 2 diabetes mellitus, hyperlipidemia presented to the hospital with a chief complaint of chest pain. Patient reported chest pain to be substernal, comes on with the patient has episodes of cough, no exertional exacerbation or relief on taking any medications, nonradiating, denied any associated nausea, vomiting, perspiration, palpitations or shortness of breath. Initial 3 ECGs showed sinus rhythm without any acute ST or T-wave changes, troponin levels were normal. Past Medical History As per HPI Past Surgical History Denies Family History Noncontributory Social History Denies smoking, alcohol, drug use Allergies: Coded Allergies: Codeine (Verified Allergy, Unknown, 09/24/25) Current Medications Current Medications Medications (Trade) Dose Ordered Sig/Rohan Route PRN Reason Start Time Stop Time Status Last Admin Diagnostic Test (Pha) (Accu-Chek Comfort Curve T) 1 strip ACHS 09/23/25 17:00 09/24/25 06:33 Insulin Human Regular (InsuLIN R) ACHS SC 09/23/25 17:00 09/24/25 06:39 Dextrose 50 ml UD PRN IV Blood Sugar LESS THAN 60 09/23/25 15:45 Aspirin 81 mg DAILY PO 09/24/25 10:00 09/24/25 09:56 Atorvastatin Calcium (Lipitor) 40 mg HS PO 09/23/25 22:00 09/24/25 00:07 Acetaminophen (Tylenol Tablet) 325 mg Q4HP PRN PO FOR HEADACHE 09/23/25 15:45 Docusate Sodium (Colace Capsule) 100 mg DAILY PO 09/24/25 10:00 Nitroglycerin (Ntrostat Sublingual) 0.4 mg Q5MINP PRN SL FOR CHEST PAIN 09/23/25 15:45 09/23/25 15:44 DC Ondansetron HCl (Zofran) 4 mg Q4HP PRN IV NAUSEA / VOMITING 09/23/25 15:45 Enoxaparin Sodium (Lovenox) 40 mg DAILY IV 09/24/25 10:00 Nitroglycerin (Ntrostat Sublingual) 0.4 mg Q5MINP PRN SL FOR CHEST PAIN 09/23/25 15:45 Pantoprazole Sodium (Protonix) 40 mg DAILY IV 09/25/25 10:00 Insulin Glargine (Lantus) 20 units HS SC 09/24/25 22:00 Insulin Glargine (Lantus) 20 units QAM SC 09/25/25 07:00 Loratadine (Claritin Tablet) 10 mg DAILY PO 09/25/25 10:00 Fluticasone Propionate (Flonase [place]) 50 mcg Q12HR EACHNOSTRI 09/24/25 22:00 Review of Systems Patient is seen and examined at the bedside Denies any chest pain at present No shortness of breath, palpitations Vital Signs Vital Signs Date Time Temp Pulse Resp B/P (MAP) Pulse Ox O2 Delivery O2 Flow Rate FiO2 09/24/25 08:15 97.8 85 18 131/65 (87) 97 97.8 09/24/25 08:00 Room Air* 0 21 Physical Exam Skin - Patients skin is warm and dry. HEENT - normocephalic, atraumatic, moist mucous membranes, no scleral icterus, no conjunctival pallor. Neck - full ROM, no LAD, no JVD Pulmonary - B/L clear breath sounds without any wheezing, rales or stridor cardiovascular - regular S1,S2 heard, no added sounds or murmurs appreciated. peripheral pulses normal radial 2+, pedal 2+. GI - soft, nontender abdomen. no hepatospleenomegaly. Bowel sounds normoactive Neurological - Patient is A/O X 4 . Bilateral upper extremity strength 5/5, bilateral lower extremity strength 5/5, no facial droop, normal speech, no tremor, no sensory deficiets. Labs/Diagnostic Data Labs Test 09/24/25 06:33 09/24/25 04:57 09/23/25 21:00 09/23/25 14:06 Range/Units POC Glucose 231 H 70-106 mg/dl White Blood Count 7.6 4.4-10.8 10^3/uL Red Blood Count 5.01 4.0-5.20 10^6/uL Hemoglobin 13.7 12.2-16.2 g/dL Hematocrit 42.0 36.0-46.0 % Mean Corpuscular Volume 83.9 80.0-100.0 fL Mean Corpuscular Hemoglobin 27.3 L 28.0-32.0 pg Mean Corpuscular Hemoglobin Concent 32.6 32.0-36.0 g/dL Red Cell Distribution Width 12.9 11.8-14.3 % Platelet Count 256 140-450 10^3/uL Mean Platelet Volume 7.1 6.9-10.8 fL Neutrophils (%) (Auto) 50.8 37.0-80.0 % Lymphocytes (%) (Auto) 38.6 10.0-50.0 % Monocytes (%) (Auto) 6.4 0.0-12.0 % Eosinophils (%) (Auto) 3.7 0.0-7.0 % Basophils (%) (Auto) 0.5 0.0-2.0 % Neutrophils # (Auto) 3.8 1.6-8.6 10 ^3/uL Lymphocytes # (Auto) 2.9 0.4-5.4 10 ^3/uL Monocytes # (Auto) 0.5 0-1.3 10 ^3/uL Eosinophils # (Auto) 0.3 0-0.8 10 ^3/uL Basophils # (Auto) 0 0-0.2 10 ^3/uL Nucleated Red Blood Cells 0.1 % Sodium Level 137 136-145 mmol/L Potassium Level 3.7 3.5-5.1 mmol/L Chloride Level 100 98-107 mmol/L Carbon Dioxide Level 26 20-31 mmol/L Anion Gap 11 5-15 Blood Urea Nitrogen 14 9-23 mg/dL Creatinine 1.10 H 0.550-1.02 mg/dL Glomerular Filtration Rate Calc 55 >90 mL/min BUN/Creatinine Ratio 12.7 10.0-20.0 Serum Glucose 250 H 74-106 mg/dL Hemoglobin A1c 11.1 H <5.7 % A1C Calcium Level 9.7 8.7-10.4 mg/dL Total Bilirubin 0.6 0.2-1.0 mg/dL Aspartate Amino Transferase (AST) 13 13-40 U/L Alanine Aminotransferase (ALT) 16 7-40 U/L Alkaline Phosphatase 86 46-116 U/L Total Protein 7.5 5.7-8.2 g/dL Albumin 4.5 3.2-4.8 g/dL Triglycerides Level 323 H < 150 mg/dL Cholesterol Level 157 < 200 mg/dL LDL Cholesterol 73 < 100 mg/dL HDL Cholesterol 35 L 40-59 mg/dL Urine Color Light-yellow Yellow Urine Clarity Clear Clear Urine pH 6.0 5.0-9.0 Urine Specific [place] 1.028 1.001-1.035 Urine Protein 1+ H Negative Urine Ketones Trace Negative Urine Blood Negative Negative /uL Urine Nitrite Negative Negative Urine Bilirubin Negative Negative Urine Urobilinogen Normal Negative mg/dL Urine Leukocyte Esterase Negative Negative /uL Urine RBC 1 0 - 4 /hpf Urine Microscopic WBC 3 0-5 /HPF Urine Squamous Epithelial Cells Few <5 /hpf Urine Bacteria None seen None Seen /hpf Urine Mucus Few None Seen Urine Glucose 4+ H Normal mg/dL Magnesium Level 2.1 1.6-2.6 mg/dL Troponin I High Sensitivity < 3 L </=34 ng/L Assessment Acute chest pain, less likely ACS given the history Chest pain likely pleuritic/costochondritis Uncontrolled hypertension Dyslipidemia with hypertriglyceridemia Uncontrolled type 2 diabetes mellitus with a hyperglycemia Plan/Recommendation - reviewed EKGs sinus rhythm with no acute ST or T-wave changes, serial troponin levels WNL - continue strict blood pressure and blood glucose control - continue statins given dyslipidemia - consider outpatient follow up with the Cardiology for further risk stratification with a possible stress test. No further inpatient cardiology workup required. Thank you for consulting Goals of care discussed with the patient. Plan discussed with Dr. Us Plan discussed with: Patient NYHA Physical activity limitations: NA Date of Service: Sep 24, 2025 Billing Provider: TATA US MD Cardiology Common Codes: [id number] INP/OBS CARE (High) BOB ANAYA RESIDENT Sep 24, 2025 12:09
[2025-09-24] MEDS: PANTOPRAZOLE 40 MG/10 ML VIAL INJ IV ONE (12:19)
[2025-09-24] MEDS: LORATADINE 10 MG TAB PO ONE (12:19)
[2025-09-24 13:08] LABS: COVID19 ANTIGEN SOFIA FIA NEGATIVE (NEGATIVE)
[2025-09-24 13:15] LABS: Amphetamine Screen, Urine Neg (NEGATIVE); Barbiturate Scree,Urine Neg (NEGATIVE); Benzodiazephine Screen, Urine Neg (NEGATIVE); Cannabinoid Screen, Urine Neg (NEGATIVE); Cocaine Screen, Urine Neg (NEGATIVE); Opiate Scree,Urine Neg (NEGATIVE); Phencyclidine Screen, Urine Neg (NEGATIVE)
[2025-09-24] MEDS ORDERED: MAALOX PLUS or MAALOX 30 ML GT PRN (14:30)
--- NOTE | 2025-09-24 17:51 | DVHPNRES ---
Progress Note Date Seen: Sep 24, 2025 Resident Creating Document: OSCAR STERLING RESIDENT Medical Necessity Reason Pt with a Central, PICC or Fol: No Subjective Review of Systems Patient was seen and examined by me today. Labs and charts reviewed. Patient reports that her chest pain is no longer there, rating it as 1/10 when she coughs. She does complain of GERD symptoms. Objective vital signs Vital Sign Date Time Temp Pulse Resp B/P (MAP) Pulse Ox O2 Delivery O2 Flow Rate FiO2 09/24/25 13:00 98.0 86 18 130/65 (86) 95 98.0 09/24/25 08:00 Room Air* 0 21 Total Intake and Output 09/23/25 09/23/25 09/24/25 15:00 23:00 07:00 Intake Total 240 ml Balance 240 ml medications Current Medications Medications Dose Ordered Sig/Rohan Route Start Time Stop Time Status Last Admin Dose Admin Diagnostic Test (Pha) 1 strip ACHS 09/23/25 17:00 09/24/25 12:19 1 STRIP Insulin Human Regular ACHS SC 09/23/25 17:00 09/24/25 12:25 8 UNITS Dextrose 50 ml UD PRN IV 09/23/25 15:45 Aspirin 81 mg DAILY PO 09/24/25 10:00 09/24/25 09:56 81 MG Atorvastatin Calcium 40 mg HS PO 09/23/25 22:00 09/24/25 00:07 40 MG Acetaminophen 325 mg Q4HP PRN PO 09/23/25 15:45 Docusate Sodium 100 mg DAILY PO 09/24/25 10:00 Ondansetron HCl 4 mg Q4HP PRN IV 09/23/25 15:45 Enoxaparin Sodium 40 mg DAILY IV 09/24/25 10:00 Nitroglycerin 0.4 mg Q5MINP PRN SL 09/23/25 15:45 Pantoprazole Sodium 40 mg DAILY IV 09/25/25 10:00 Insulin Glargine 20 units HS SC 09/24/25 22:00 Insulin Glargine 20 units QAM SC 09/25/25 07:00 Loratadine 10 mg DAILY PO 09/25/25 10:00 Fluticasone Propionate 50 mcg Q12HR EACHNOSTRI 09/24/25 22:00 Al Hydrox/Mg Hydrox/Simethicone 15 ml Q8HP PRN GT 09/24/25 14:30 Examination General Appearance: Alert, Oriented X3, Cooperative, Not in acute distress HEENT: Atraumatic, Mucous membranes moist/pink Respiratory: Clear to auscultation, Normal air movement, No added sounds Cardiovascular: Regular rate, Normal S1, Normal S2, No murmurs Abdominal: Active bowel sounds, Soft, no distention, no tenderness Extremities: No edema, Normal pulses, No tenderness/swelling Skin: No Significant rash, except past surgical scars Neuro: Normal speech, sensorimotor deficits none Psych/Mental Status: Mental status NL, Mood NL Nurse was there as pattern fitter during examination laboratory and microbiology Laboratory Tests 09/24/25 04:57 Test 09/24/25 04:57 Range/Units Serum Glucose 250 H 74-106 mg/dL Labs and/or images reviewed: Labs reviewed by me, Image(s) reviewed by me Problem List/Assessment/Plan Problem List/Assessment/Plan 65-year-old female with history of type 2 diabetes mellitus ([id number]), hypertension, hyperlipidemia, and allergic rhinitis presents with 1-month history of intermittent cough producing white to occasionally yellow sputum, and 4-day history of substernal, stabbing chest pain (01/04) occurring only with cough, non-radiating, without associated symptoms. Assessment and plan #Acute chest pain, ruled out ACS, likely due to GERD #Cough due to GERD and allergic rhinitis -telemetry -tropes negative -aspirin 81 mg p.o. daily -chest x-ray shows no cardiopulmonary disease -IV ondansetron 4 mg q.4 PRN -IV Protonix -PO Mylanta 15 mL Q 8 PRN -echo -Cardiac consultation suggested outpatient stress test -TSH 5.48 increased, T4 normal 1.26 -Flonase spray 50 mcg b.i.d. in bilateral nostrils -Loratadine 10 mg p.o. daily HS #AYO on CKD likely VMN - monitor -Avoid nephrotoxic agents #Hyperlipidemia, noncompliance to medication -Atorvastatin 40 mg HS daily -Lipid panel shows triglyceride high 323, HDL low 35 #Uncontrolled type 2 diabetes mellitus, A1c 11.7 -Mild sliding scale insulin -Insulin Lantus 20 units HS daily -Diabetic education provided GI prophylaxis: IV Protonix DVT prophylaxis: subcutaneous Lovenox Diet: cardiac and diabetic diet Goals of care discussed with the patient for more than 27 minutes: Full code status Case discussed with Dr. Ford, and team Plan discussed with: Patient, Other (rn) Visit Coding STANDARD RES Billing Provider: CHRISTINA FORD MD Date of Service if different f: Sep 24, 2025 Common Visit Codes: [id number] INP/OBS CARE(HIGH) OSCAR STERLING RESIDENT Sep 24, 2025 17:51
--- NOTE | 2025-09-24 20:45 | DVHSR ---
APPROVED REPORT EXAM: Two-dimensional and M-mode echocardiogram with Doppler and color Doppler. Blood Pressure: 153/60 mmHg INDICATION Chest Pain RISK FACTORS Height: 5'2", Weight: 139 DIMENSIONS LVDd 3.3 (3.8-5.7cm) LA (2D) 3.3 (1.9-4.0cm) Aortic Root 3.1 (2.0-3.7cm) LVDs 2.2 (2.5-4.0cm) LA (MM) (1.9-4.0cm) Aortic Cusp Exc 1.8 (1.5-2.0cm) EF (%) 60.0 (55-70%) Rt. Atrium 3.4 (1.9-4.0cm) Asc. Aorta cm IVSd 1.2 (0.7-1.1cm) RV (D) (1.8-2.4cm) PWd 1.0 (0.7-1.1cm) Mitral Valve Mitral Mitral Stenosis E wave 0.70m/s MV Mean GR. mmHg A wave 1.30m/s MV Peak GR. mmHg E/A ratio 0.5 2D MVA cm2 DECEL Time 157ms PRESS 1/2 Time ms Aortic Valve Aortic Valve Aortic Stenosis V1 1.03m/s AO Mean GR. 3mmHg V2 1.00m/s AO Peak GR. 4mmHg LVOT Diameter 1.7 (1.8-2.4cm) Doppler CELIA 2.34cm2 Other Information Quality : Technically Limited Rhythm : Technically limited study due to body habitus. Conclusion LV EF IS 65% AND IS NORMAL NORMAL VALVES SLIGHTLY DILATED RV AND RA NO EFFUSION
--- NOTE | 2025-09-24 20:58 | DVHINCON2 ---
Date Seen: Sep 24, 2025 Referring Physician SHAHID Nails Reason for Consultation chest pain History of Present Illness This is a 65-year-old female with a PMH of hypertension, mjg-wwalnea-ofssbkxbk type 2 diabetes mellitus, hyperlipidemia who presented to the ED with a chief complaint of chest pain. Patient reported chest pain to be substernal, comes on with the patient has episodes of cough, no exertional exacerbation or relief on taking any medications, nonradiating, denied any associated nausea, vomiting, perspiration, palpitations or shortness of breath. Initial 3 ECGs showed sinus rhythm without any acute ST or T-wave changes, troponin levels were normal. Past Medical History As per HPI Past Surgical History Denies Allergies: Coded Allergies: Codeine (Verified Allergy, Unknown, 09/24/25) Current Medications Current Medications Medications (Trade) Dose Ordered Sig/Rohan Route PRN Reason Start Time Stop Time Status Last Admin Aspirin 81 mg DAILY PO 09/24/25 10:00 09/24/25 09:56 Atorvastatin Calcium (Lipitor) 40 mg HS PO 09/23/25 22:00 09/24/25 00:07 Docusate Sodium (Colace Capsule) 100 mg DAILY PO 09/24/25 10:00 Enoxaparin Sodium (Lovenox) 40 mg DAILY IV 09/24/25 10:00 Pantoprazole Sodium (Protonix) 40 mg DAILY IV 09/25/25 10:00 Insulin Glargine (Lantus) 20 units HS SC 09/24/25 22:00 Insulin Glargine (Lantus) 20 units QAM SC 09/25/25 07:00 Loratadine (Claritin Tablet) 10 mg DAILY PO 09/25/25 10:00 Fluticasone Propionate (Flonase [place]) 50 mcg Q12HR EACHNOSTRI 09/24/25 22:00 Al Hydrox/Mg Hydrox/Simethicone (Maalox Plus) 15 ml Q8HP PRN GT FOR STOMACH DISTRESS 09/24/25 14:30 Review of Systems Patient is seen and examined at the bedside Denies any chest pain at present No shortness of breath, palpitations Vital Signs Vital Signs Date Time Temp Pulse Resp B/P (MAP) Pulse Ox O2 Delivery O2 Flow Rate FiO2 09/24/25 18:24 98.0 88 18 123/75 (91) 96 98.0 09/24/25 08:00 Room Air* 0 21 Physical Exam GENERAL: Alert and oriented x 3. No acute distress. EYES: PERRL, EOMI. Anicteric. HENT: Moist mucous membranes. LUNGS: Clear to auscultation bilaterally. CARDIOVASCULAR: Regular rate and rhythm. ABDOMEN: Soft, non-tender and non-distended. EXTREMITIES: No edema. NEUROLOGIC: No focal neurological deficits. SKIN: Warm, dry. Labs/Diagnostic Data Labs Test 09/24/25 18:20 09/24/25 11:45 09/24/25 04:57 09/23/25 21:00 Range/Units POC Glucose 274 H 70-106 mg/dl Urine Opiates Screen Neg NEGATIVE Urine Fentanyl Screen Neg NEGATIVE Urine Barbiturates Screen Neg NEGATIVE Urine Phencyclidine Screen Neg NEGATIVE Urine Amphetamines Screen Neg NEGATIVE Urine Benzodiazepines Screen Neg NEGATIVE Urine Cocaine Screen Neg NEGATIVE Urine Cannabinoids Screen Neg NEGATIVE Influenza Type A Antigen Negative Negative Influenza Type B Antigen Negative Negative SARS-CoV-2 Antigen (Rapid) Negative NEGATIVE White Blood Count 7.6 4.4-10.8 10^3/uL Red Blood Count 5.01 4.0-5.20 10^6/uL Hemoglobin 13.7 12.2-16.2 g/dL Hematocrit 42.0 36.0-46.0 % Mean Corpuscular Volume 83.9 80.0-100.0 fL Mean Corpuscular Hemoglobin 27.3 L 28.0-32.0 pg Mean Corpuscular Hemoglobin Concent 32.6 32.0-36.0 g/dL Red Cell Distribution Width 12.9 11.8-14.3 % Platelet Count 256 140-450 10^3/uL Mean Platelet Volume 7.1 6.9-10.8 fL Neutrophils (%) (Auto) 50.8 37.0-80.0 % Lymphocytes (%) (Auto) 38.6 10.0-50.0 % Monocytes (%) (Auto) 6.4 0.0-12.0 % Eosinophils (%) (Auto) 3.7 0.0-7.0 % Basophils (%) (Auto) 0.5 0.0-2.0 % Neutrophils # (Auto) 3.8 1.6-8.6 10 ^3/uL Lymphocytes # (Auto) 2.9 0.4-5.4 10 ^3/uL Monocytes # (Auto) 0.5 0-1.3 10 ^3/uL Eosinophils # (Auto) 0.3 0-0.8 10 ^3/uL Basophils # (Auto) 0 0-0.2 10 ^3/uL Nucleated Red Blood Cells 0.1 % Sodium Level 137 136-145 mmol/L Potassium Level 3.7 3.5-5.1 mmol/L Chloride Level 100 98-107 mmol/L Carbon Dioxide Level 26 20-31 mmol/L Anion Gap 11 5-15 Blood Urea Nitrogen 14 9-23 mg/dL Creatinine 1.10 H 0.550-1.02 mg/dL Glomerular Filtration Rate Calc 55 >90 mL/min BUN/Creatinine Ratio 12.7 10.0-20.0 Serum Glucose 250 H 74-106 mg/dL Hemoglobin A1c 11.1 H <5.7 % A1C Calcium Level 9.7 8.7-10.4 mg/dL Total Bilirubin 0.6 0.2-1.0 mg/dL Aspartate Amino Transferase (AST) 13 13-40 U/L Alanine Aminotransferase (ALT) 16 7-40 U/L Alkaline Phosphatase 86 46-116 U/L Total Protein 7.5 5.7-8.2 g/dL Albumin 4.5 3.2-4.8 g/dL Triglycerides Level 323 H < 150 mg/dL Cholesterol Level 157 < 200 mg/dL LDL Cholesterol 73 < 100 mg/dL HDL Cholesterol 35 L 40-59 mg/dL Thyroid Stimulating Hormone (TSH) 5.48 H 0.55-4.78 uIU/mL Free Thyroxine (T4) Calculated 1.26 0.89-1.76 ng/dL Urine Color Light-yellow Yellow Urine Clarity Clear Clear Urine pH 6.0 5.0-9.0 Urine Specific [place] 1.028 1.001-1.035 Urine Protein 1+ H Negative Urine Ketones Trace Negative Urine Blood Negative Negative /uL Urine Nitrite Negative Negative Urine Bilirubin Negative Negative Urine Urobilinogen Normal Negative mg/dL Urine Leukocyte Esterase Negative Negative /uL Urine RBC 1 0 - 4 /hpf Urine Microscopic WBC 3 0-5 /HPF Urine Squamous Epithelial Cells Few <5 /hpf Urine Bacteria None seen None Seen /hpf Urine Mucus Few None Seen Urine Glucose 4+ H Normal mg/dL Test 09/23/25 14:06 Range/Units Magnesium Level 2.1 1.6-2.6 mg/dL Troponin I High Sensitivity < 3 L </=34 ng/L Assessment Acute chest pain, less likely ACS given the history. Chest pain likely pleuritic/costochondritis. Uncontrolled hypertension. Dyslipidemia with hypertriglyceridemia. Uncontrolled type 2 diabetes mellitus with a hyperglycemia. Plan/Recommendation agree with your ongoing assessment and care of plan. Patient has been seen by Pam Morales, resident on my behalf. We have discussed the plan with the patient. Reviewed EKGs sinus rhythm with no acute ST or T-wave changes, serial troponin levels WNL. Continue strict blood pressure and blood glucose control. Continue statins given dyslipidemia. Consider outpatient follow up with the Cardiology for further risk stratification with a possible stress test. Goals of care discussed with the patient. Additional plan as per the hospital course. Plan discussed with: Patient NYHA Physical activity limitations: NA Date of Service: Sep 24, 2025 Billing Provider: TATA US MD Cardiology Common Codes: [id number] INP/OBS CARE (High) Cardiology Consultation Codes: [id number] CONSULT <45MIN TATA US MD Sep 24, 2025 20:58
[2025-09-24] MEDS: INSULIN LANTUS (GLARGINE) 1 /0.01ml (100units/ml) SC SCH (22:00)
[2025-09-24] MEDS: FLUTICASONE PROP NASAL SPR 0.05 % (50MCG) 16GM EACHNOSTRI SCH (23:43)
[2025-09-25] MEDS: INSULIN LANTUS (GLARGINE) 1 /0.01ml (100units/ml) SC SCH (06:58)
[2025-09-25 07:25] LABS: Anion Gap 10 (5-15); Carbon Dioxide 26 mmol/L (20-31); Chloride 104 mmol/L (98-107); Potassium 3.7 mmol/L (3.5-5.1); Sodium 140 mmol/L (136-145)
[2025-09-25 07:26] LABS: Calcium 9.7 mg/dL (8.7-10.4)
[2025-09-25 07:30] VITALS: PULSE 95
[2025-09-25 07:31] LABS: BUN/Creatinine Ratio 11.9 (10.0-20.0); Blood Urea Nitrogen 12 mg/dL (9-23)
[2025-09-25 07:41] LABS: Glucose 190 mg/dL (74-106)
[2025-09-25 09:30] VITALS: BP 116/71; PULSE 95; RESP 18; TEMP 98.1; O2SAT 98
[2025-09-25] MEDS: PANTOPRAZOLE 40 MG/10 ML VIAL INJ IV SCH (10:00)
[2025-09-25] MEDS: LORATADINE 10 MG TAB PO SCH (10:02)
[2025-09-25 12:30] VITALS: BP 133/73; PULSE 97; RESP 16; TEMP 99.1; O2SAT 97
[2025-09-25] MEDS ORDERED: PANT40T PO (13:54)
[2025-09-25] MEDS ORDERED: INSLANTI SC (13:56)
[2025-09-25] MEDS ORDERED: ALCOPAD58 XX (13:58)
[2025-09-25] MEDS ORDERED: INSU-1640 XX (13:58)
[2025-09-25] MEDS ORDERED: BLOO1KIT60 XX (13:58)
[2025-09-25] MEDS ORDERED: LANC-347 XX (13:58)
[2025-09-25 15:18] VITALS: BP 133/75; PULSE 97; RESP 16; TEMP 99.1; O2SAT 97
--- NOTE | 2025-09-25 15:56 | DVHDSRES ---
Discharge Summary Date of Admission Resident Creating Document: OSCAR STERLING RESIDENT Sep 23, 2025 at 15:35 Date of Discharge: Sep 25, 2025 Admitting Diagnosis Acute chest pain Labs/Diagnostic Data: Laboratory Results Test 09/25/25 11:47 09/25/25 06:28 09/24/25 11:45 09/24/25 04:57 POC Glucose 281 mg/dl (70-106) Sodium Level 140 mmol/L (136-145) Potassium Level 3.7 mmol/L (3.5-5.1) Chloride Level 104 mmol/L (98-107) Carbon Dioxide Level 26 mmol/L (20-31) Anion Gap 10 (5-15) Blood Urea Nitrogen 12 mg/dL (9-23) Creatinine 1.01 mg/dL (0.550-1.02) Glomerular Filtration Rate Calc 61 mL/min (>90) BUN/Creatinine Ratio 11.9 (10.0-20.0) Serum Glucose 190 mg/dL (74-106) Calcium Level 9.7 mg/dL (8.7-10.4) Urine Opiates Screen Neg (NEGATIVE) Urine Fentanyl Screen Neg (NEGATIVE) Urine Barbiturates Screen Neg (NEGATIVE) Urine Phencyclidine Screen Neg (NEGATIVE) Urine Amphetamines Screen Neg (NEGATIVE) Urine Benzodiazepines Screen Neg (NEGATIVE) Urine Cocaine Screen Neg (NEGATIVE) Urine Cannabinoids Screen Neg (NEGATIVE) Influenza Type A Antigen Negative (Negative) Influenza Type B Antigen Negative (Negative) SARS-CoV-2 Antigen (Rapid) Negative (NEGATIVE) White Blood Count 7.6 10^3/uL (4.4-10.8) Red Blood Count 5.01 10^6/uL (4.0-5.20) Hemoglobin 13.7 g/dL (12.2-16.2) Hematocrit 42.0 % (36.0-46.0) Mean Corpuscular Volume 83.9 fL (80.0-100.0) Mean Corpuscular Hemoglobin 27.3 pg (28.0-32.0) Mean Corpuscular Hemoglobin Concent 32.6 g/dL (32.0-36.0) Red Cell Distribution Width 12.9 % (11.8-14.3) Platelet Count 256 10^3/uL (140-450) Mean Platelet Volume 7.1 fL (6.9-10.8) Neutrophils (%) (Auto) 50.8 % (37.0-80.0) Lymphocytes (%) (Auto) 38.6 % (10.0-50.0) Monocytes (%) (Auto) 6.4 % (0.0-12.0) Eosinophils (%) (Auto) 3.7 % (0.0-7.0) Basophils (%) (Auto) 0.5 % (0.0-2.0) Neutrophils # (Auto) 3.8 10 ^3/uL (1.6-8.6) Lymphocytes # (Auto) 2.9 10 ^3/uL (0.4-5.4) Monocytes # (Auto) 0.5 10 ^3/uL (0-1.3) Eosinophils # (Auto) 0.3 10 ^3/uL (0-0.8) Basophils # (Auto) 0 10 ^3/uL (0-0.2) Nucleated Red Blood Cells 0.1 % Hemoglobin A1c 11.1 % A1C (<5.7) Total Bilirubin 0.6 mg/dL (0.2-1.0) Aspartate Amino Transferase (AST) 13 U/L (13-40) Alanine Aminotransferase (ALT) 16 U/L (7-40) Alkaline Phosphatase 86 U/L (46-116) Total Protein 7.5 g/dL (5.7-8.2) Albumin 4.5 g/dL (3.2-4.8) Triglycerides Level 323 mg/dL (< 150) Cholesterol Level 157 mg/dL (< 200) LDL Cholesterol 73 mg/dL (< 100) HDL Cholesterol 35 mg/dL (40-59) Thyroid Stimulating Hormone (TSH) 5.48 uIU/mL (0.55-4.78) Free Thyroxine (T4) Calculated 1.26 ng/dL (0.89-1.76) Test 09/23/25 21:00 09/23/25 14:06 Urine Color Light-yellow (Yellow) Urine Clarity Clear (Clear) Urine pH 6.0 (5.0-9.0) Urine Specific [place] 1.028 (1.001-1.035) Urine Protein 1+ (Negative) Urine Ketones Trace (Negative) Urine Blood Negative /uL (Negative) Urine Nitrite Negative (Negative) Urine Bilirubin Negative (Negative) Urine Urobilinogen Normal mg/dL (Negative) Urine Leukocyte Esterase Negative /uL (Negative) Urine RBC 1 /hpf (0 - 4) Urine Microscopic WBC 3 /HPF (0-5) Urine Squamous Epithelial Cells Few /hpf (<5) Urine Bacteria None seen /hpf (None Seen) Urine Mucus Few (None Seen) Urine Glucose 4+ mg/dL (Normal) Magnesium Level 2.1 mg/dL (1.6-2.6) Troponin I High Sensitivity < 3 ng/L (</=34) Other Laboratory Tests 09/25/25 06:28 09/24/25 04:57 Brief Hx & Hospital Course: Brief history of hospitalization: The patient is a 65-year-old female with a history of type 2 diabetes mellitus ([id number]), hypertension, hyperlipidemia, and allergic rhinitis who presented with a one-month history of intermittent cough producing white to occasionally yellow sputum and a four-day history of substernal stabbing chest pain occurring only with cough, non-radiating, and without associated symptoms. ACS was ruled out with negative troponins and normal chest X-ray; cardiac evaluation included telemetry monitoring and echocardiogram, with outpatient stress test recommended. Chest pain and cough were attributed to GERD and allergic rhinitis; she was treated with IV Protonix, PO Mylanta, Flonase nasal spray, and loratadine. TSH was mildly elevated at 5.48 with normal T4. Echo showed ejection fraction 65% with mildly dilated RV and RA. CKD stage IIIA was noted with AYO likely due to volume depletion; renal function stabilized with monitoring and avoidance of nephrotoxins. Hyperlipidemia was addressed with atorvastatin, and uncontrolled diabetes (A1c 11.7) was managed with sliding scale insulin and initiation of Lantus 20 units nightly, along with diabetic education. Lipid panel showed triglycerides 323, HDL 35. GI and DVT prophylaxis were provided, and the patient was maintained on a cardiac and diabetic diet. She is being discharged in stable condition on Protonix for 30 days and insulin Lantus 20 units daily, with instructions to follow up with her primary care physician in two weeks and visit the discharge clinic within one week. General Appearance: Alert, Oriented X3, Cooperative, Not in acute distress HEENT: Atraumatic, Mucous membranes moist/pink Respiratory: Clear to auscultation, Normal air movement, No added sounds Cardiovascular: Regular rate, Normal S1, Normal S2, No murmurs Abdominal: Active bowel sounds, Soft, no distention, no tenderness Extremities: No edema, Normal pulses, No tenderness/swelling Skin: No Significant rash, except past surgical scars Neuro: Normal speech, sensorimotor deficits none Psych/Mental Status: Mental status NL, Mood NL Nurse was there as permanent mold supervisor during examination Operations or Procedures PROCEDURE(s): CXRP - CHEST PORTABLE IMPRESSION: 1. No acute cardiopulmonary abnormality. EXAM: Two-dimensional and M-mode echocardiogram with Doppler and color Doppler. Blood Pressure: 153/60 mmHg INDICATION Chest Pain RISK FACTORS Height: 5'2", Weight: 139 DIMENSIONS LVDd 3.3 (3.8-5.7cm) LA (2D) 3.3 (1.9-4.0cm) Aortic Root 3.1 (2.0- 3.7cm) LVDs 2.2 (2.5-4.0cm) LA (MM) (1.9-4.0cm) Aortic Cusp Exc 1.8 (1.5- 2.0cm) EF (%) 60.0 (55-70%) Rt. Atrium 3.4 (1.9-4.0cm) Asc. Aorta cm IVSd 1.2 (0.7-1.1cm) RV (D) (1.8-2.4cm) PWd 1.0 (0.7-1.1cm) Mitral Valve Mitral Mitral Stenosis E wave 0.70m/s MV Mean GR. mmHg A wave 1.30m/s MV Peak GR. mmHg E/A ratio 0.5 2D MVA cm2 DECEL Time 157ms PRESS 1/2 Time ms Aortic Valve Aortic Valve Aortic Stenosis V1 1.03m/s AO Mean GR. 3mmHg V2 1.00m/s AO Peak GR. 4mmHg LVOT Diameter 1.7 (1.8-2.4cm) Doppler CELIA 2.34cm2 Other Information Quality : Technically Limited Rhythm : Technically limited study due to body habitus. Conclusion LV EF IS 65% AND IS NORMAL NORMAL VALVES SLIGHTLY DILATED RV AND RA NO EFFUSION SIGNED BY: TATA US MD SIGNED DATE/TIME: 09/24/252044 Condition at Discharge: Stable Final Diagnosis/Problems List #Acute chest pain, ruled out ACS #GERD/reflux esophagitis #Cough due to GERD and allergic rhinitis #AYO on CKD likely VMN #Hyperlipidemia, noncompliance to medication #Uncontrolled type 2 diabetes mellitus, A1c 11.7 Discharge Disposition: Home Discharge Instruct/Medications Diet: Consistent carbohydrate Activity: No Restrictions, As Tolerated Follow Up/Referral: Please follow up with PCP within 2 weeks of discharge. Check HbA1C 4 months interval Medications: Please mushroom picker the meds as per EHR Scheduled Insulin Glargine (Lantus), 100 UNIT SC HS Pantoprazole Sodium Sesquihydr (Pantoprazole Sodium), 40 MG PO DAILY Durable Medical Equipment Blood Glucose Monitoring Suppl (D-Care Glucometer Kit/Glu W/Device), KIT XX, (DME) Insulin Syringe/Needle U-100 (Aq Insulin Syringe/1Ml/31 31G X 5/16" 1 ml), MIS XX, (DME) Isopropyl Alcohol (Easy Touch Alcohol Prep P), % XX, (DME) Lancets (Freestyle Lancets), EA XX, (DME) Discharge Statement: "Patient was advised to return to the ER or call 911 if any headaches, dizziness, shortness of breath, chest pain, abdominal pain, bleeding, fevers, or worsening of medical condition. Patient was counseled about treatment plan, medications, possible side effects, patientverbalized understanding. All questions were answered to the best of my ability. This discharge took greater then 30 minutes in planning, reviewing documentation, counseling the patient, and discussing with other team members." ASSESSMENT ASSESSMENT Assessment Acute Chest Pain ruled out ACS GERD/Reflux esophagitis Visit Coding STANDARD RES Billing Provider: CHRISTINA OLSON MD Date of Service if different f: Sep 25, 2025 Common Visit Codes: 29031-TQG/OBS DISCH DAY >30min OSCAR STERLING RESIDENT Sep 25, 2025 15:56
--- NOTE | 2025-09-26 00:06 | DVHPN2 ---
Progress Note - Dictate Date Seen: Sep 25, 2025 Medical Necessity Reason Pt with a Central, PICC or Fol: No Subjective Patient was seen and evaluated in follow-up. Patient has no new complaints at this time. Echocardiogram showed an EF of 65%. Patient is cardiac stable for discharge. vital signs Vital Sign Date Time Temp Pulse Resp B/P (MAP) Pulse Ox O2 Delivery O2 Flow Rate FiO2 09/25/25 15:18 99.1 97 16 97 09/25/25 12:30 133/73 (93) 09/25/25 07:30 Room Air* 0 21 Total Intake and Output 09/24/25 09/24/25 09/25/25 15:00 23:00 07:00 Intake Total 900 ml Output Total 5 ml Balance 895 ml objective GENERAL: Alert and oriented x 3. No acute distress. EYES: PERRL, EOMI. Anicteric. HENT: Moist mucous membranes. LUNGS: Clear to auscultation bilaterally. CARDIOVASCULAR: Regular rate and rhythm. ABDOMEN: Soft, non-tender and non-distended. EXTREMITIES: No edema. NEUROLOGIC: No focal neurological deficits. SKIN: Warm, dry. laboratory and microbiology Laboratory Tests 09/25/25 06:28 09/24/25 04:57 Test 09/25/25 06:28 Range/Units Serum Glucose 190 H 74-106 mg/dL Problem List Acute chest pain, less likely ACS given the history. Chest pain likely pleuritic/costochondritis. Uncontrolled hypertension. Dyslipidemia with hypertriglyceridemia. Uncontrolled type 2 diabetes mellitus with a hyperglycemia. Assessment/Plan Continued all current supportive medical care. Aspirin, Lipitor. DVT and GI prophylactics. Additional plan as per the hospital course. Plan discussed with: Patient TATA US MD Sep 25, 2025 17:44
== END 2025-09-25 15:13 | disposition home or self-care (01) | DRG 391 ==
LOC: ER 10:58 → OVERFLOW 15:35
PROVIDERS: ADMIT Internal Medicine Geriatric Medicine; ATTEND Internal Medicine Geriatric Medicine
DX: K21.00 Gastro-esophageal reflux disease with esophagitis, without bleeding (principal); E11.00 Type 2 diabetes mellitus with hyperosmolarity without nonketotic hyperglycemic-hyperosmolar coma (NKHHC); N17.0 Acute kidney failure with tubular necrosis; E11.65 Type 2 diabetes mellitus with hyperglycemia; N18.9 Chronic kidney disease, unspecified; I12.9 Hypertensive chronic kidney disease with stage 1 through stage 4 chronic kidney disease, or unspecified chronic kidney disease; J30.9 Allergic rhinitis, unspecified; E11.22 Type 2 diabetes mellitus with diabetic chronic kidney disease; I16.0 Hypertensive urgency; E78.1 Pure hyperglyceridemia; Z91.148 Patient's other noncompliance with medication regimen for other reason; Z79.899 Other long term (current) drug therapy; Z87.442 Personal history of urinary calculi
CPT/HCPCS: 36415; 71045; 80048; 80053; 80061; 80307; 81001; 82962; 83036; 83735; 84439; 84443; 84484; 85025; 87426; 87804; 93005; 93306; G0378; J1815; J2470